=== PATIENT | female | born 1990 | race Caucasian/White ===

== ENCOUNTER 2017-11-29 01:15 | Emergency (ER) | payer BC ==
[2017-11-29] MEDS ORDERED: NS 0.9% 1000 ML* 1,000 ML IV ONE (01:59)
[2017-11-29] MEDS ORDERED: Ondansetron INJ* 2 MG/ML VIAL IV PRN (01:59)
[2017-11-29] MEDS ORDERED: Metoclopramide IV* 5 MG/ML 2 ML VIAL IV SLOW PU ONE (02:18)
[2017-11-29] MEDS ORDERED: Acetaminophen TAB* 325 MG PO ONE (02:18)
[2017-11-29] MEDS ORDERED: Pantoprazole IV* 40 MG IV ONE (02:18)
[2017-11-29 02:22] LABS: ABS Basophils 0 10^3/ul (0-0.2); ABS Eosinophils 0.1 10^3/ul (0-0.6); ABS Lymphocytes 1.5 10^3/ul (1.0-4.8); ABS Monocytes 0.7 10^3/ul (0-0.8); ABS Neutrophils 9.6 10^3/ul (1.5-7.7); ABS Nucleated RBC 0 10^3/ul; Eosinophil % 0.5 % (0-6); Hematocrit 40 % (35-47); Hemoglobin 13.6 g/dl (12.0-16.0); Lymphocyte % 12.4 % (25-47); Mean Corpuscular HGB Conc 34 g/dl (31-36); Mean Corpuscular Hemoglobin 32 pg (27-31); Mean Corpuscular Volume 94 fL (80-97); Mean Platelet Volume 7.2 um3 (7.4-10.4); Nucleated Red Blood Cells % 0.1; Platelet Count 239 10^3/ul (150-450); Red Blood Count 4.24 10^6/ul (4.00-5.40); Red Cell Distribution Width 12 % (10.5-15); White Blood Count 11.8 10^3/ul (3.5-10.8)
--- NOTE | 2017-11-29 02:23 | ED ---
Abdominal Pain/Female - HPI Summary HPI Summary: This is hyacinth Elizondo documenting for attending Dr. Corbin Aragon This patient is a 27 year old F presenting to [facility] accompanied by her mother and boyfriend with a chief complaint of emesis since 1830. Pt denies abd pain and diarrhea. She endorses fever and sore throat secondary to emesis. Pt denies PMHx, SHx. She denies similar sx in the past. 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 Pt took 600 mg Aleve (3 tabs). She endorses IUD, no MP. - History of Current Complaint Chief Complaint: EDFever Stated Complaint: VOMITING Time Seen by Provider: 11/29/17 01:50 Hx Obtained From: Patient Hx Last Menstrual Period: IUD Onset/Duration: Lasting Hours, Still Present Timing: Constant Severity Initially: Mild Severity Currently: Mild Pain Intensity: 1 Pain Scale Used: 0-10 Numeric Location: Diffuse Radiates: No Aggravating Factor(s): Nothing Alleviating Factor(s): Medications - Aleve Associated Signs and Symptoms: Positive: Nausea, Vomiting, Other: - sore throat secondary to emesis.. Negative: Diarrhea Allergies/Adverse Reactions: Allergies Allergy/AdvReac Type Severity Reaction Status Date / Time amoxicillin Allergy Unknown Verified 11/29/17 01:18 Reaction Details codeine Allergy Unknown Verified 11/29/17 01:18 Reaction Details sulfamethoxazole Allergy Unknown Verified 11/29/17 01:18 [From Bactrim] Reaction Details trimethoprim [From Bactrim] Allergy Unknown Verified 11/29/17 01:18 Reaction Details PMH/Surg Hx/FS Hx/Imm Hx Endocrine/Hematology History: Denies: Hx Diabetes, Hx Thyroid Disease Cardiovascular History: Denies: Hx Hypertension Respiratory History: Denies: Hx Asthma, Hx Chronic Obstructive Pulmonary Disease (COPD) GI History: Denies: Hx Ulcer Musculoskeletal History: Denies: Hx Rheumatoid Arthritis, Hx Osteoporosis Sensory History: Denies: Hx Legally Blind Opthamlomology History: Denies: Hx Legally Blind EENT History: Denies: Hx Deafness Neurological History: Denies: Hx CVA - Surgical History Surgery Procedure, Year, and Place: 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 - Immunization History Date of Tetanus Vaccine: unk Date of Influenza Vaccine: unk Infectious Disease History: No Infectious Disease History: Denies: Hx Hepatitis, Hx Human Immunodeficiency Virus (HIV), History Other Infectious Disease, Traveled Outside the [place] in Last 30 Days - Family History Known Family History: Negative: Other - no skin cancers - Social History Occupation: Employed Full-time - nurse Lives: With Family Alcohol Use: Occasionally Substance Use Type: Reports: None Smoking Status (MU): Never Smoked Tobacco Review of Systems Positive: Fever - currently resolved Positive: Sore Throat - secondary to emesis Positive: Vomiting, Nausea. Negative: Abdominal Pain, Diarrhea All Other Systems Reviewed And Are Negative: Yes Physical Exam - Summary Physical Exam Summary: VITAL SIGNS: Reviewed. GENERAL: Patient is a well-developed and nourished female who is lying comfortable in the stretcher. Patient is not in any acute respiratory distress. HEAD AND FACE: No signs of trauma. No ecchymosis, hematomas or skull depressions. No sinus tenderness. EYES: PERRLA, EOMI x 2, No injected conjunctiva, no nystagmus. EARS: Hearing grossly intact. Ear canals and tympanic membranes are within normal limits. MOUTH: Oropharynx within normal limits. NECK: Supple, trachea is midline, no adenopathy, no JVD, no carotid bruit, no c- spine tenderness, neck with full ROM. CHEST: Symmetric, no tenderness at palpation LUNGS: Clear to auscultation bilaterally. No wheezing or crackles. CVS: Regular rate and rhythm, S1 and S2 present, no murmurs or gallops appreciated. ABDOMEN: Soft, non-tender. No signs of distention. No rebound no guarding, and no masses palpated. Bowel sounds are hyperactive. EXTREMITIES: FROM in all major joints, no edema, no cyanosis or clubbing. NEURO: Alert and oriented x 3. No acute neurological deficits. Speech is normal and follows commands. SKIN: Dry and warm Triage Information Reviewed: Yes Vital Signs On Initial Exam: Initial Vitals Temp Pulse Resp BP Pulse Ox 97.7 F 74 15 122/73 97 11/29/17 01:18 11/29/17 01:18 11/29/17 01:18 11/29/17 01:18 11/29/17 01:18 Vital Signs Reviewed: Yes Diagnostics - Vital Signs Vital Signs Temp Pulse Resp BP Pulse Ox 11/29/17 01:18 97.7 F 74 15 122/73 97 - Laboratory Result Diagrams: 11/29/17 02:10 11/29/17 02:10 Lab Statement: Any lab studies that have been ordered have been reviewed, and results considered in the medical decision making process. Re-Evaluation - Re-Evaluation First Eval Re-Evaluation Time: 03:13 Change: Improved Comment: Pt feels better, wants discharge. Abdominal Pain Fem Course/Dx - Course Course Of Treatment: A 27-year-old F presents to the ED with a CC of emesis since 183. (+) fever (resolved), nausea, sore throat secondary to emesis. (-) diarrhea, abd pain. Denies similar sx in past, has IUD in place, pt works as nurse and concered this could be from exposure at work. Pt refused IV fluids and medications. - Diagnoses Provider Diagnoses: Gastroenteritis Discharge - Sign-Out/Discharge Documenting (check all that apply): Patient Departure - discharge - Discharge Plan Condition: Stable Disposition: HOME Prescriptions: Metoclopramide TAB* [Reglan TAB*] 10 mg PO Q6H PRN #20 tab PRN Reason: Nausea/Vomiting Patient Education Materials: Gastroenteritis (ED) Referrals: Beckie Whiting PHYSICS PROFESSOR [Primary Care Provider] - 3 Days Additional Instructions: Return to the emergency department for any new or worsening symptoms. - Billing Disposition and Condition Condition: STABLE Disposition: Home
[2017-11-29] MEDS ORDERED: Metoclopramide TAB* 10 MG PO ONE (02:26)
[2017-11-29 02:37] LABS: EGFR Non-African American 76.3 (>60)
[2017-11-29] MEDS: Potassium Chlor TAB* 20 MEQ TAB.ER PO ONE ×2 (02:48→02:55)
[2017-11-29] MEDS ORDERED: Potassium Chloride LIQUID* 20 MEQ PACKET ONE (02:50)
[2017-11-29] MEDS ORDERED: Potassium Chloride LIQUID* 20 MEQ PACKET PO ONE (02:53)
[2017-11-29 03:21] VITALS: BP 113/66
== END 2017-11-29 03:20 | disposition home or self-care (01) ==
LOC: ED 01:15
DX: K52.9 Noninfective gastroenteritis and colitis, unspecified (principal); R11.2 Nausea with vomiting, unspecified; J02.9 Acute pharyngitis, unspecified; Z88.0 Allergy status to penicillin
CPT/HCPCS: 36415; 80053; 83605; 83690; 84702; 85025; 86140; 96374; 96375; 99282; A9270-GY